=== PATIENT | female | born 1950 | race Caucasian/White ===

== ENCOUNTER 2022-11-29 22:52 | Emergency (ER) | payer MEDICARE ==
[~2022-11-29] VITALS: Ht 154.9 cm; Wt 51.3 kg
--- NOTE | 2022-11-29 23:15 | NUR ---
[id number] FROM HOME C/O EPIGASTRIC PAIN X1HR. +N/V. TOOK MYLANTA & TYLENOL. NO RELIEF. HX OF GERD. PT IS AAOX4. WITH PAIN SCALE OF 10/10. VOMITED 3X ALREADY. PATIENT IS ATTACHED TO MONITOR. VITALS CHECKED.
[2022-11-29] MEDS ORDERED: MAG HYDROX/AL HYDROX/SIMETH 30 ML UDC ONE (23:18)
[2022-11-29] MEDS ORDERED: LIDOCAINE VISCOUS 2% UD 15 ML UDC ONE (23:18)
--- NOTE | 2022-11-29 23:20 | NUR ---
SEEN BY DR SAL AT BEDSIDE
--- NOTE | 2022-11-29 23:26 | NUR ---
EKG DONE AT BEDSIDE
[2022-11-29] MEDS ORDERED: ONDANSETRON 4 MG TAB.RAPDIS ONE (23:28)
[2022-11-29] MEDS ORDERED: MAG HYDROX/AL HYDROX/SIMETH 30 ML UDC PO ONE (23:30)
[2022-11-29] MEDS ORDERED: LIDOCAINE VISCOUS 2% UD 15 ML UDC MM ONE (23:30)
[2022-11-29] MEDS ORDERED: ONDANSETRON 4 MG TAB.RAPDIS SL ONE (23:30)
[2022-11-29] MEDS ORDERED: MORPHINE SULFATE INJ 4 MG/ML DISP.SYRIN ONE (23:54)
[2022-11-29] MEDS ORDERED: ONDANSETRON HCL/PF 4 MG/2 ML VIAL ONE (23:54)
[2022-11-30] MEDS ORDERED: MORPHINE SULFATE INJ 2 MG/ML DISP.SYRIN IV ONE
[2022-11-30] MEDS ORDERED: IV NS 0.9% 1,000 ML BAG IV ONE
[2022-11-30] MEDS ORDERED: ONDANSETRON HCL/PF 4 MG/2 ML VIAL IVP ONE
[2022-11-30 00:37] LABS: BASOPHILS # (AUTO) 0.1 K/uL (0.0-0.2); BASOPHILS % (AUTO) 0.7 % (0.0-2.0); EOSINOPHILS % (AUTO) 0.9 % (0.0-6.0); HEMATOCRIT 36 % (33-45); HEMOGLOBIN 11.7 g/dL (11.5-14.8); LYMPHOCYTES # (AUTO) 1.2 K/uL (0.8-4.8); LYMPHOCYTES % (AUTO) 10.5 % (20.0-44.0); MEAN CORPUSCULAR HGB CONC 32 g/dl (31.0-36.0); MEAN CORPUSCULAR VOLUME 88 fL (82-100); MONOCYTES # (AUTO) 0.5 K/uL (0.1-1.30); MONOCYTES % (AUTO) 4.1 % (2.0-12.0); NEUTROPHILS # (AUTO) 9.6 K/uL (1.8-8.9); NEUTROPHILS % (AUTO) 83.8 % (43.0-81.0); PLATELET COUNT (AUTO) 286 K/uL (150-450); RED BLOOD CELL COUNT(AUTO) 4.16 MIL/uL (4.0-5.2); WHITE BLOOD COUNT (AUTO) 11.5 K/uL (4.3-11.0)
[2022-11-30 00:48] LABS: CALCIUM, SERUM 8.6 mg/dL (8.5-10.1); CARBON DIOXIDE 25 mmol/L (21-32); CHLORIDE 102 mmol/L (98-107); CREATININE 0.8 mg/dL (0.6-1.3); GLUCOSE 149 mg/dL (74-106); SODIUM SERUM 138 mmol/L (136-145); UREA NITROGEN, BLOOD 14 mg/dL (7-18)
[2022-11-30 00:54] LABS: ALANINE AMINOTRANSFERASE 17 U/L (12-78); ALBUMIN 3.9 g/dL (3.4-5.0); ALKALINE PHOSPHATASE 73 U/L (46-116); ASPARTATE AMINOTRANSFERASE 17 U/L (15-37); BILIRUBIN,DIRECT 0.1 mg/dL (0.0-0.2); BILIRUBIN,TOTAL 0.2 mg/dL (0.2-1.0); LIPASE 182 U/L (73-393); TOTAL PROTEIN, SERUM 7.4 g/dL (6.4-8.2)
--- NOTE | 2022-11-30 01:00 | NUR ---
URINE COLLECTED AND SENT TO LAB
--- NOTE | 2022-11-30 01:01 | NUR ---
PT BROUGHT TO CT DEPT
--- NOTE | 2022-11-30 01:01 | NUR ---
PT TAKEN TO CT VIA [facility]
--- NOTE | 2022-11-30 01:01 | NUR ---
URINE SPECIMEN SENT TO LAB
[2022-11-30 01:21] LABS: BILIRUBIN,URINE NEGATIVE (NEGATIVE); COLOR,URINE YELLOW (YELLOW); LEUKOCYTE ESTERASE ,URINE NEGATIVE (NEGATIVE); NITRITE, URINE NEGATIVE (NEGATIVE); PROTEIN,URINE NEGATIVE (NEGATIVE); UGLUCOSE NEGATIVE (NEGATIVE); UROBILINOGEN,URINE 0.2 EU/dL (0.2)
--- NOTE | 2022-11-30 02:38 | NUR ---
CALLED [phone] FOR READ, NO ANSWER, LEFT A MESSAGE
--- NOTE | 2022-11-30 04:40 | NUR ---
PT IS PAIN FREE. ABLE TO AMBULATE TO BATHROOM TO PASS URINE. UPDATES GIVEN. WE ARE WAITING FOR [facility] OFFICIAL RESULT
--- NOTE | 2022-11-30 05:07 | NUR ---
IV CANNULA REMOVED
[2022-11-30 05:21] VITALS: BP 121/64
== END 2022-11-30 05:22 | disposition home or self-care (01) ==
LOC: ER 22:55
DX: K80.50 Calculus of bile duct without cholangitis or cholecystitis without obstruction (principal); R10.13 Epigastric pain; I10 Essential (primary) hypertension; E78.00 Pure hypercholesterolemia, unspecified; E11.9 Type 2 diabetes mellitus without complications; K21.9 Gastro-esophageal reflux disease without esophagitis; E03.9 Hypothyroidism, unspecified; Z60.2 Problems related to living alone
CPT/HCPCS: 99285; 74176; 96374; 71045; 96361; 96375; 93005; 36415; 76705; 85025; 80048; 83690; 80076; 81003; 84484 ×2; J2270; J2405; J7030; Q0162